=== PATIENT | female | born 1955 | race Caucasian/White ===

== ENCOUNTER → 2017-04-10 | Outpatient (REF) | payer BC ==
[~2017-04-10] MED LIST: /ADVA50050 IN; /PRAV20TA OR; AMLO10TA OR; AMLO25TA PO; ASPI81TA63 OR; ATIV0.5T OR; AVAP300T OR; AVEL1TAB3 PO; AVELIDE PO; Deltasone PO; GLUC1000 OR; GLUC500T OR; HYDR12.55 PO; HYDR25TA6 OR; LOSA100T36 PO; PREDNISONE PO; PROAAER10 INH; TIMO0.5S3 OU; TIOT18INH INH; VIBR100C OR; ZEBE5TAB OR; ZITHTAB PO; [UNRECOGNIZED DRUG - OTHER]
== END ==
LOC: M LAB REF 13:31
PROVIDERS: ATTEND Internal Medicine Medical Oncology
DX: C50.919 Malignant neoplasm of unspecified site of unspecified female breast (principal)

== ENCOUNTER → 2017-04-11 | Outpatient (CLI) | payer BC ==
[2017-04-11 07:09] LABS: ALBUMIN 3.7 GM/DL (3.2-5.2); ALBUMIN/GLOBULIN RATIO 1.12 (1.00-1.93); ALKALINE PHOSPHATASE 84 U/L (45-117); ALT/SGPT 26 U/L (12-78); ANION GAP 6 MEQ/L (8-16); AST/SGOT 14 U/L (7-37); BILIRUBIN,TOTAL 0.6 MG/DL (0.2-1.0); BLOOD UREA NITROGEN 13 MG/DL (7-18); CALCIUM LEVEL 9.1 MG/DL (8.8-10.2); CARBON DIOXIDE LEVEL 32 MEQ/L (21-32); CHLORIDE LEVEL 102 MEQ/L (98-107); CHOLESTEROL LEVEL 124 MG/DL (<200); CREATININE FOR GFR 0.76 MG/DL (0.55-1.02); GLOMERULAR FILTRATION RATE > 60.0 (>45); GLUCOSE, FASTING 154 MG/DL (80-110); POTASSIUM SERUM 4.3 MEQ/L (3.5-5.1); SODIUM LEVEL 140 MEQ/L (136-145); TRIGLYCERIDES LEVEL 115 MG/DL (<150)
== END ==
LOC: M LAB 06:04
PROVIDERS: ATTEND Internal Medicine
DX: E11.9 Type 2 diabetes mellitus without complications (principal); E78.5 Hyperlipidemia, unspecified; I10 Essential (primary) hypertension

== ENCOUNTER 2018-12-07 12:13 | Emergency (ER) | payer OTHER, BC ==
[~2018-12-07] VITALS: Ht 157.5 cm; Wt 95.5 kg
[~2018-12-07 12:13] MED LIST changes: -/ADVA50050 IN; -/PRAV20TA OR; +ADV250INH INH; +ADVA1AER2 IN; +AMLO10TA5 PO; +ASPI81TA26 PO; +BISO10TA7 PO; +INVO100T PO; -LOSA100T36 PO; +LOSA100T50 PO; +METF10004 PO; +PRAV1TAB39 OR; +PRAV20TA2 PO; -TIMO0.5S3 OU; +TIMO5SOL6 OU
[2018-12-07] MEDS ORDERED: GABA-1171 PO (12:29)
[2018-12-07] MEDS ORDERED: NORV2TAB PO (12:29)
[2018-12-07] MEDS ORDERED: APAP325T4 PO (14:29)
[2018-12-07] MEDS ORDERED: ACETAMINOPHEN TAB 650MG DOSE (2X325MG) PO ONE (14:30)
--- NOTE | 2018-12-07 14:32 | REP ---
PELVIS LEFT HIP: Three views. HISTORY: Injury in a fall. FINDINGS: AP view of the pelvis shows an intact bony pelvic ring. The femoral heads are smooth and rounded and hip joint spaces are preserved. Some vascular calcification is observed. The visualized bowel gas pattern is normal. AP and frog-leg views of the left femur show no additional abnormality. IMPRESSION: No fracture noted. Electronically Signed by Jozef Azul MD 12/07/2018 08:15 P
[2018-12-07 14:50] VITALS: BP 139/63
== END 2018-12-07 15:01 | disposition home or self-care (01) ==
LOC: M ED 12:13
DX: S70.02XA Contusion of left hip, initial encounter (principal); W18.39XA Other fall on same level, initial encounter; Y92.89 Other specified places as the place of occurrence of the external cause; Y99.0 Civilian activity done for income or pay; E11.9 Type 2 diabetes mellitus without complications; J44.9 Chronic obstructive pulmonary disease, unspecified; Z79.899 Other long term (current) drug therapy; Z79.84 Long term (current) use of oral hypoglycemic drugs; Z79.82 Long term (current) use of aspirin; Z88.8 Allergy status to other drugs, medicaments and biological substances; F17.210 Nicotine dependence, cigarettes, uncomplicated

== ENCOUNTER 2019-03-13 15:54 | Emergency (ER) | payer BC, OTHER ==
[~2019-03-13] VITALS: Ht 157.5 cm; Wt 98.0 kg
[2019-03-13 15:54] VITALS: BP 203/84
[~2019-03-13 15:54] MED LIST changes: +APAP325T4 PO; +BISO10TA10 PO; -BISO10TA7 PO; +GABA-1171 PO; +NORV2TAB PO
[2019-03-13] MEDS ORDERED: BETI0.5S (16:04)
[2019-03-13] MEDS ORDERED: LATANOPROST (16:04)
[2019-03-13] MEDS ORDERED: XALA0.007 OU (16:05)
[2019-03-13] MEDS ORDERED: NAPR-837 PO (16:35)
== END 2019-03-13 16:49 | disposition home or self-care (01) ==
LOC: M ED 15:54
DX: S46.211A Strain of muscle, fascia and tendon of other parts of biceps, right arm, initial encounter (principal); X58.XXXA Exposure to other specified factors, initial encounter; Y92.89 Other specified places as the place of occurrence of the external cause; I10 Essential (primary) hypertension; E11.9 Type 2 diabetes mellitus without complications; J44.9 Chronic obstructive pulmonary disease, unspecified; E78.5 Hyperlipidemia, unspecified; Z79.82 Long term (current) use of aspirin; Z88.8 Allergy status to other drugs, medicaments and biological substances; Z87.891 Personal history of nicotine dependence

== ENCOUNTER → 2019-03-28 | Outpatient (RCR) | payer BC ==
[~2019-03-28] MED LIST changes: +BETI0.5S; +LATANOPROST; +NAPR-837 PO; +XALA0.007 OU
== END ==
LOC: M PT 03-20 09:29
PROVIDERS: ATTEND Orthopaedic Surgery Hand Surgery
DX: S46.121D Laceration of muscle, fascia and tendon of long head of biceps, right arm, subsequent encounter (principal); X58.XXXD Exposure to other specified factors, subsequent encounter

== ENCOUNTER 2019-04-09 15:35 | Outpatient (RCR) | payer BC | END 2019-04-27 | LOC: M PT 15:35 | PROVIDERS: ATTEND Orthopaedic Surgery Hand Surgery | DX: Z47.89 Encounter for other orthopedic aftercare (principal) ==

== ENCOUNTER → 2019-06-19 | Outpatient (CLI) | payer BC ==
[~2019-06-19] MED LIST changes: -BISO10TA10 PO; +BISO10TA14 PO
--- NOTE | 2019-06-19 18:28 | REP ---
Left knee five views: There are no comparisons. There is mild tricompartment osteoarthritis. There is a transverse lucency at the base of the osteophyte at the superior margin of the patella, possibly a fracture. I suspect there is a small joint effusion. Mineralization is normal. There are no calcifications or foreign bodies. Impression: Likely fracture at the base of the an osteophyte at the superior margin of the patella. Small joint effusion. Electronically Signed by Chang Alcantara MD 06/19/2019 06:19 P
== END ==
LOC: M WUC 17:50
PROVIDERS: ATTEND Physician Assistant
DX: M25.562 Pain in left knee (principal)

== ENCOUNTER 2019-06-27 14:20 | Outpatient (RCR) | payer BC | END 2019-06-28 | LOC: M PT 14:20 | PROVIDERS: ATTEND Physician Assistant Surgical | DX: Z47.89 Encounter for other orthopedic aftercare (principal) ==

== ENCOUNTER 2019-07-23 14:18 | Outpatient (RCR) | payer BC | END 2019-07-27 | LOC: M PT 14:18 | PROVIDERS: ATTEND Physician Assistant Surgical | DX: M17.12 Unilateral primary osteoarthritis, left knee (principal) ==

== ENCOUNTER → 2020-05-05 | Outpatient (CLI) | payer SELFPAY ==
[~2020-05-05] MED LIST changes: -AMLO10TA5 PO; +AMLO1TAB25 PO
== END ==
LOC: M LABSMTC 14:49
PROVIDERS: ATTEND Pediatrics
DX: Z11.59 Encounter for screening for other viral diseases (principal)

== ENCOUNTER → 2021-07-30 | Outpatient (CLI) | payer MEDICARE ==
[~2021-07-30] MED LIST changes: +LOSA100T45 PO; -LOSA100T50 PO
== END ==
LOC: M WHC 12:23
PROVIDERS: ATTEND Specialist
DX: Z12.31 Encounter for screening mammogram for malignant neoplasm of breast (principal); Z90.11 Acquired absence of right breast and nipple; Z85.3 Personal history of malignant neoplasm of breast

== ENCOUNTER 2022-04-28 17:06 | Inpatient (IN) | payer MEDICARE ==
[~2022-04-28] VITALS: Ht 154.9 cm; Wt 93.8 kg
[~2022-04-28 17:06] MED LIST changes: +cefTRIAXone SOD 1 GM in D5W MINI-BAG PLUS 50 ML IV SCH
[2022-04-28] MEDS ORDERED: ACETAMINOPHEN 325 MG TAB PO ONE (17:50)
[2022-04-28 17:55] VITALS: O2SAT 94
[2022-04-28 18:00] LABS: BASO # 0.1 10^3/uL (0.0-0.2); BASO % 0.7 % (0.0-1.0); EOS # 0.1 10^3/uL (0.0-0.5); EOS % 0.9 % (0.0-3.0); HEMATOCRIT 37.8 % (36.0-47.0); HEMOGLOBIN 12.2 g/dl (12.0-15.5); LYMPH # 1.2 10^3/uL (1.5-5.0); LYMPH % 10.5 % (24.0-44.0); MEAN CORPUSCULAR HEMOGLOBIN 29.8 pg (27.0-33.0); MEAN CORPUSCULAR HGB CONC 32.3 g/dl (32.0-36.5); MEAN CORPUSCULAR VOLUME 92.4 fl (80.0-96.0); MONO # 1.1 10^3/uL (0.0-0.8); MONO % 9.3 % (2.0-8.0); NEUTROPHILS # 9.2 10^3/uL (1.5-8.5); NEUTROPHILS % 78.2 % (36.0-66.0); PLATELET COUNT, AUTOMATED 320 10^3/uL (150-450); RED BLOOD COUNT 4.09 10^6/uL (4.00-5.40); WHITE BLOOD COUNT 11.8 10^3/uL (4.0-10.0)
[2022-04-28 18:24] LABS: LIPASE 43 U/L (12-53)
[2022-04-28 18:25] LABS: BILIRUBIN,DIRECT 0.2 MG/DL (<0.4); CPK CREATINE PHOSPHOKINASE 78 U/L (34-145)
[2022-04-28] MEDS ORDERED: methylPREDNISolone 125MG 2ML VIAL IV ONE (20:00)
[2022-04-28] MEDS ORDERED: IPRATROPIUM 0.5MG/ALBUTEROL 2.5MG INH SOL UD 3ML (DUONEB) NEB ONE (20:00)
[2022-04-28 20:04] LABS: ALKALINE PHOSPHATASE 96 U/L (46-116); ALT/SGPT 22 U/L (7.0-40); AST/SGOT 15 U/L (<34); BILIRUBIN,TOTAL 0.6 MG/DL (0.3-1.2); BLOOD UREA NITROGEN 15 MG/DL (9-23); CARBON DIOXIDE LEVEL 28 MMOL/L (20-31); CHLORIDE LEVEL 95 MMOL/L (98-107); CREATININE FOR GFR 0.61 MG/DL (0.55-1.30); GLOMERULAR FILTRATION RATE > 60.0 (>45); GLUCOSE, FASTING 168 MG/DL (74-106); POTASSIUM SERUM 4.1 MMOL/L (3.5-5.1); SODIUM LEVEL 134 MMOL/L (136-145); TOTAL PROTEIN 6.4 G/DL (5.7-8.2)
[2022-04-28 20:23] LABS: CALCIUM LEVEL 8.5 MG/DL (8.3-10.6); CK-MB VALUE MASS < 1.0 NG/ML (<3.6); MB/CK RELATIVE INDEX 1.28 (< OR =4)
[2022-04-28] MEDS ORDERED: LevoFLOXacin IV 750 MG in IV 1 EA IV ONE (20:50)
[2022-04-28] MEDS: THIAMINE 100 MG TAB PO SCH (21:00)
[2022-04-28] MEDS ORDERED: GLUCAGON INJ 1MG VIAL SC PRN (22:25)
[2022-04-28] MEDS ORDERED: DEXTROSE 50% 50 ML SYRINGE IV PRN (22:25)
[2022-04-28] MEDS ORDERED: GLUCOSE 4GM CHEW TABLET PO PRN (22:25)
[2022-04-28] MEDS ORDERED: ACETAMINOPHEN TAB 650MG DOSE (2X325MG) PO PRN (22:25)
[2022-04-28] MEDS: cefTRIAXone SOD 1 GM in D5W MINI-BAG PLUS 50 ML IV SCH (23:56)
[2022-04-28] MEDS: DOXYCYCLINE HYCLATE 100 MG in D5W MINI-BAG PLUS 100 ML IV SCH (23:57)
[2022-04-29] MEDS ORDERED: LORazepam 2 MG TAB PO PRN
[2022-04-29 01:06] LABS: CK-MB VALUE MASS < 1.0 NG/ML (<3.6)
[2022-04-29 01:07] LABS: CPK CREATINE PHOSPHOKINASE 72 U/L (34-145); MB/CK RELATIVE INDEX 1.38 (< OR =4)
[2022-04-29] MEDS ORDERED: ALBU2.5V10 INH (01:16)
[2022-04-29] MEDS ORDERED: COSO1SOL3 OD (01:16)
[2022-04-29] MEDS ORDERED: LEVOTAB10 PO (01:16)
[2022-04-29] MEDS ORDERED: ALBU8.5H INH (01:16)
[2022-04-29] MEDS ORDERED: ACAR50TA3 PO (01:16)
[2022-04-29] MEDS ORDERED: VITMTA PO (01:16)
[2022-04-29] MEDS ORDERED: TRAV04OPD OS (01:16)
[2022-04-29] MEDS ORDERED: HOME MED LIST COMPLETE! XX SCH (01:20)
[2022-04-29] MEDS ORDERED: ISOVUE-370 76% 100ML VIAL As Ordered ONE (06:39)
[2022-04-29 06:54] LABS: HEMATOCRIT 37.8 % (36.0-47.0); HEMOGLOBIN 12.1 g/dl (12.0-15.5); MEAN CORPUSCULAR HEMOGLOBIN 29.4 pg (27.0-33.0); MEAN CORPUSCULAR VOLUME 91.7 fl (80.0-96.0); PLATELET COUNT, AUTOMATED 332 10^3/uL (150-450); RED BLOOD COUNT 4.12 10^6/uL (4.00-5.40); WHITE BLOOD COUNT 7.9 10^3/uL (4.0-10.0)
[2022-04-29 07:21] LABS: MAGNESIUM LEVEL 1.3 MG/DL (1.8-2.4)
[2022-04-29 07:22] LABS: ALBUMIN 2.9 G/DL (3.2-5.2); ALKALINE PHOSPHATASE 98 U/L (46-116); ALT/SGPT 21 U/L (7.0-40); AST/SGOT 14 U/L (<34); BILIRUBIN,TOTAL 0.4 MG/DL (0.3-1.2); BLOOD UREA NITROGEN 18 MG/DL (9-23); CALCIUM LEVEL 8.8 MG/DL (8.3-10.6); CARBON DIOXIDE LEVEL 27 MMOL/L (20-31); CHLORIDE LEVEL 93 MMOL/L (98-107); CREATININE FOR GFR 0.57 MG/DL (0.55-1.30); GLOMERULAR FILTRATION RATE > 60.0 (>45); GLUCOSE, FASTING 348 MG/DL (74-106); POTASSIUM SERUM 4.4 MMOL/L (3.5-5.1); SODIUM LEVEL 133 MMOL/L (136-145); TOTAL PROTEIN 6.5 G/DL (5.7-8.2)
[2022-04-29] MEDS: INSULIN LISPRO (NovoLOG) PER UNIT SC SCH ×3 (08:12→17:48)
[2022-04-29] MEDS: methylPREDNISolone 40MG 1ML VIAL IV SCH ×2 (08:12→21:52)
[2022-04-29] MEDS: ENOXAPARIN 40MG/0.4ML SYRINGE (J1650 PER 10MG) SC SCH (08:13)
[2022-04-29] MEDS: THIAMINE 100 MG TAB PO SCH ×2 (08:14→21:52)
[2022-04-29] MEDS: GABAPENTIN 100 MG CAP PO SCH ×2 (08:14→21:52)
[2022-04-29] MEDS: LOSARTAN 50MG TABLET PO SCH (08:14)
[2022-04-29] MEDS: MULTIVITAMINS/MINERALS THERAP 1 TAB PO SCH (08:14)
[2022-04-29] MEDS: FOLIC ACID 1MG TAB PO SCH (08:14)
[2022-04-29] MEDS: ASPIRIN 81MG ENTERIC TABLET PO SCH (08:14)
[2022-04-29] MEDS: bisoproloL fumarate 10 MG TAB PO SCH (08:18)
[2022-04-29] MEDS: IPRATROPIUM 0.5MG/ALBUTEROL 2.5MG INH SOL UD 3ML (DUONEB) NEB SCH ×3 (08:45→19:47)
[2022-04-29] MEDS: TIOTROPIUM INHALER/CAPSULE (SPIRIVA) INH SCH (08:47)
[2022-04-29] MEDS ORDERED: COSOPT OCUMETER PLUS 10ML (DORZOLAMIDE/TIMOLOL) OD SCH (09:00)
[2022-04-29] MEDS: DOXYCYCLINE HYCLATE 100 MG in D5W MINI-BAG PLUS 100 ML IV SCH (11:25)
[2022-04-29 14:15] VITALS: BP 160/87
[2022-04-29] MEDS: MAGNESIUM OXIDE 400MG TAB (MAG-OX) PO SCH ×2 (14:44→21:51)
[2022-04-29 15:28] VITALS: BP 161/87
[2022-04-29] MEDS: guaiFENesin SYRUP 200MG 10ML UDC PO PRN ×2 (15:45→21:54)
[2022-04-29] MEDS ORDERED: INSULIN LISPRO (NovoLOG) PER UNIT SC SCH (21:00)
[2022-04-29] MEDS ORDERED: PRAVASTATIN 20 MG TAB PO SCH (21:00)
[2022-04-29] MEDS ORDERED: LATANOPROST 0.005% OPHTH SOLN 2.5 ML OS SCH (21:00)
[2022-04-29 21:03] VITALS: BP 161/87
[2022-04-29] MEDS: DOXYCYCLINE HYCLATE 100MG TABLET PO SCH (21:52)
[2022-04-29 22:00] VITALS: BP 161/87
[2022-04-29] MEDS: cefTRIAXone SOD 1 GM in D5W MINI-BAG PLUS 50 ML IV SCH (23:33)
[2022-04-29] MEDS: COSOPT OCUMETER PLUS 10ML (DORZOLAMIDE/TIMOLOL) OS SCH (23:33)
[2022-04-30] MEDS: IPRATROPIUM 0.5MG/ALBUTEROL 2.5MG INH SOL UD 3ML (DUONEB) NEB SCH ×3 (01:11→13:14)
[2022-04-30 05:00] VITALS: BP 151/83
[2022-04-30 06:34] VITALS: BP 151/83
[2022-04-30] MEDS: TIOTROPIUM INHALER/CAPSULE (SPIRIVA) INH SCH (07:13)
[2022-04-30] MEDS: ENOXAPARIN 40MG/0.4ML SYRINGE (J1650 PER 10MG) SC SCH (08:01)
[2022-04-30] MEDS: methylPREDNISolone 40MG 1ML VIAL IV SCH (08:01)
[2022-04-30] MEDS: INSULIN LISPRO (NovoLOG) PER UNIT SC SCH ×2 (08:02→11:44)
[2022-04-30 08:04] VITALS: BP 152/89
[2022-04-30] MEDS: bisoproloL fumarate 10 MG TAB PO SCH (08:04)
[2022-04-30] MEDS: GABAPENTIN 100 MG CAP PO SCH (08:04)
[2022-04-30] MEDS: MAGNESIUM OXIDE 400MG TAB (MAG-OX) PO SCH (08:05)
[2022-04-30] MEDS: ASPIRIN 81MG ENTERIC TABLET PO SCH (08:05)
[2022-04-30] MEDS: DOXYCYCLINE HYCLATE 100MG TABLET PO SCH (08:05)
[2022-04-30] MEDS: FOLIC ACID 1MG TAB PO SCH (08:05)
[2022-04-30] MEDS: COSOPT OCUMETER PLUS 10ML (DORZOLAMIDE/TIMOLOL) OS SCH (08:06)
[2022-04-30] MEDS: THIAMINE 100 MG TAB PO SCH (08:06)
[2022-04-30] MEDS: LOSARTAN 50MG TABLET PO SCH (08:06)
[2022-04-30] MEDS: MULTIVITAMINS/MINERALS THERAP 1 TAB PO SCH (08:06)
[2022-04-30] MEDS ORDERED: LEVA1.25 INH (08:42)
[2022-04-30] MEDS ORDERED: SYMB16INH INH (08:42)
[2022-04-30] MEDS ORDERED: LEVAINH INH (08:42)
[2022-04-30] MEDS ORDERED: hydroCHLOROthiazide 12.5 MG CAPSULE PO SCH (09:00)
[2022-04-30] MEDS ORDERED: DOXY-444 PO (10:21)
[2022-04-30] MEDS ORDERED: CEFD300C41 PO (10:21)
[2022-04-30] MEDS ORDERED: PRED10TA2 PO (10:24)
== END 2022-04-30 16:20 | disposition home or self-care (01) | DRG 190 ==
LOC: M ED 17:06 → EDBD 17:06 → M ED INP 22:22 → ENRESERV 04-29 12:10 → M MSPAV 04-29 14:02
PROVIDERS: ADMIT Family Medicine; ATTEND Internal Medicine
DX: J44.1 Chronic obstructive pulmonary disease with (acute) exacerbation (principal); J18.9 Pneumonia, unspecified organism; J98.11 Atelectasis; J44.0 Chronic obstructive pulmonary disease with (acute) lower respiratory infection; I10 Essential (primary) hypertension; E11.9 Type 2 diabetes mellitus without complications; E78.5 Hyperlipidemia, unspecified; K76.0 Fatty (change of) liver, not elsewhere classified; Z88.8 Allergy status to other drugs, medicaments and biological substances; Z79.899 Other long term (current) drug therapy; Z79.82 Long term (current) use of aspirin; F10.10 Alcohol abuse, uncomplicated; E83.42 Hypomagnesemia

== ENCOUNTER → 2022-06-13 | Outpatient (CLI) | payer OTHER ==
[~2022-06-13] MED LIST changes: +ACAR50TA3 PO; +ALBU2.5V10 INH; +ALBU8.5H INH; +CEFD300C41 PO; +COSO1SOL3 OD; +DOXY-444 PO; +LEVA1.25 INH; +LEVAINH INH; +LEVOTAB10 PO; +PRED10TA2 PO; +SYMB16INH INH; +TRAV04OPD OS; +VITMTA PO; -cefTRIAXone SOD 1 GM in D5W MINI-BAG PLUS 50 ML IV SCH
== END ==
LOC: M PLAIMG 11:10
PROVIDERS: ATTEND Physician Assistant Medical
DX: J18.8 Other pneumonia, unspecified organism (principal)

== ENCOUNTER → 2022-08-01 | Outpatient (CLI) | payer OTHER | LOC: M WHC 09:12 | PROVIDERS: ATTEND Internal Medicine | DX: Z12.31 Encounter for screening mammogram for malignant neoplasm of breast (principal); Z85.3 Personal history of malignant neoplasm of breast ==

== ENCOUNTER → 2022-08-11 | Outpatient (CLI) | payer OTHER | LOC: M CARPUL 12:51 | PROVIDERS: ATTEND Internal Medicine Pulmonary Disease | DX: R05.9 Cough, unspecified (principal) ==

== ENCOUNTER → 2022-08-31 | Outpatient (REF) | payer OTHER ==
[~2022-08-31] MED LIST changes: -BETI0.5S; -COSO1SOL3 OD; +DORZ10DR10 OD; +TIMO5DRO4
== END ==
LOC: M LAB REF 16:11
PROVIDERS: ATTEND Internal Medicine
DX: G60.9 Hereditary and idiopathic neuropathy, unspecified (principal)

== ENCOUNTER → 2022-09-07 | Outpatient (CLI) | payer OTHER | LOC: M CARPUL 08:52 | PROVIDERS: ATTEND Internal Medicine Pulmonary Disease | DX: R06.02 Shortness of breath (principal) ==

== ENCOUNTER → 2022-10-03 | Outpatient (CLI) | payer OTHER ==
[~2022-10-03] MED LIST changes: -LOSA100T45 PO; +LOSA100T46 PO
== END ==
LOC: M PLAIMG 11:14
PROVIDERS: ATTEND Internal Medicine Pulmonary Disease
DX: R91.8 Other nonspecific abnormal finding of lung field (principal)

== ENCOUNTER → 2023-04-27 | Outpatient (CLI) | payer OTHER, MEDICARE ==
[~2023-04-27] MED LIST changes: +ALEN70TA82 PO; +CEFD1CAP9 PO; -CEFD300C41 PO; +MONT10TA97
== END ==
LOC: M SLEEP 20:00
PROVIDERS: ATTEND Internal Medicine Pulmonary Disease
DX: R06.83 Snoring (principal)

== ENCOUNTER → 2023-08-03 | Outpatient (CLI) | payer OTHER | LOC: M WHC 09:52 | PROVIDERS: ATTEND Specialist | DX: Z12.31 Encounter for screening mammogram for malignant neoplasm of breast (principal) ==

== ENCOUNTER 2023-10-07 23:52 | Emergency (ER) | payer OTHER ==
[~2023-10-07] VITALS: Ht 154.9 cm; Wt 92.3 kg
[~2023-10-07 23:52] MED LIST changes: +DOXY-440 PO; -DOXY-444 PO
[2023-10-08 00:42] LABS: VENOUS BASE EXCESS -0.8 (-2.0-2.0); VENOUS HCO3 23.5 MMOL/L (23.0-27.0); VENOUS O2 SATURATION 93.1 % (60.0-80.0); VENOUS PARTIAL PRESSURE CO2 37.7 mmHg (38.0-50.0); VENOUS PARTIAL PRESSURE O2 69.8 mmHg (30.0-50.0); VENOUS PH 7.412 UNITS (7.330-7.430); VENOUS STANDARD HCO3 23.7 MMOL/L; VENOUS TOTAL CO2 24.6 MMOL/L (24.0-28.0)
[2023-10-08 00:50] LABS: BASO # 0.1 10^3/uL (0.0-0.2); BASO % 0.5 % (0.0-1.0); EOS # 0.1 10^3/uL (0.0-0.5); EOS % 0.7 % (0.0-3.0); HEMATOCRIT 37.7 % (36.0-47.0); HEMOGLOBIN 12.6 g/dl (12.0-15.5); LYMPH # 0.8 10^3/uL (1.5-5.0); LYMPH % 5.8 % (24.0-44.0); MEAN CORPUSCULAR HEMOGLOBIN 29.9 pg (27.0-33.0); MEAN CORPUSCULAR HGB CONC 33.4 g/dl (32.0-36.5); MEAN CORPUSCULAR VOLUME 89.3 fl (80.0-96.0); MONO % 7.2 % (2.0-8.0); NEUTROPHILS # 12.2 10^3/uL (1.5-8.5); NEUTROPHILS % 85.4 % (36.0-66.0); PLATELET COUNT, AUTOMATED 309 10^3/uL (150-450); RED BLOOD COUNT 4.22 10^6/uL (4.00-5.40); WHITE BLOOD COUNT 14.3 10^3/uL (4.0-10.0)
[2023-10-08] MEDS ORDERED: SEMA0.257 SQ (01:11)
[2023-10-08] MEDS ORDERED: PROA1AER2 INH (01:11)
[2023-10-08] MEDS ORDERED: ALBU2.5V10 NEB (01:11)
[2023-10-08] MEDS ORDERED: JARD1TAB PO (01:11)
[2023-10-08] MEDS ORDERED: TREL1AER PO (01:11)
[2023-10-08 01:12] LABS: ALBUMIN 3.6 G/DL (3.2-5.2); ALKALINE PHOSPHATASE 59 U/L (46-116); ALT/SGPT 23 U/L (7.0-40); AST/SGOT 18 U/L (<34); BILIRUBIN,DIRECT 0.3 MG/DL (<0.4); BILIRUBIN,TOTAL 0.7 MG/DL (0.3-1.2); BLOOD UREA NITROGEN 16 MG/DL (9-23); CALCIUM LEVEL 8.7 MG/DL (8.3-10.6); CARBON DIOXIDE LEVEL 26 MMOL/L (20-31); CHLORIDE LEVEL 99 MMOL/L (98-107); CK-MB VALUE MASS < 1.0 NG/ML (<3.6); CPK CREATINE PHOSPHOKINASE 111 U/L (34-145); CREATININE FOR GFR 0.71 MG/DL (0.55-1.30); GLOMERULAR FILTRATION RATE > 60.0 (>45); GLUCOSE, FASTING 186 MG/DL (74-106); POTASSIUM SERUM 4.1 MMOL/L (3.5-5.1); SODIUM LEVEL 134 MMOL/L (136-145); TOTAL PROTEIN 6.6 G/DL (5.7-8.2)
[2023-10-08] MEDS: methylPREDNISolone 125MG 2ML VIAL IV ONE (02:51)
[2023-10-08] MEDS: ACETAMINOPHEN TAB 650MG DOSE (2X325MG) PO ONE (02:51)
[2023-10-08 03:06] LABS: CK-MB VALUE MASS < 1.0 NG/ML (<3.6)
[2023-10-08 03:14] LABS: CPK CREATINE PHOSPHOKINASE 112 U/L (34-145); MB/CK RELATIVE INDEX 0.89 (< OR =4)
[2023-10-08 03:37] VITALS: TEMP 98.1
[2023-10-08] MEDS ORDERED: PRED20TA PO (04:06)
[2023-10-08] MEDS ORDERED: AZIT-12 PO (04:06)
[2023-10-08] MEDS: AZITHROMYCIN 250MG TABLET PO ONE (04:14)
[2023-10-08 05:19] VITALS: BP 172/88; O2SAT 94
== END 2023-10-08 05:20 | disposition home or self-care (01) ==
LOC: M ED 23:52
DX: J44.1 Chronic obstructive pulmonary disease with (acute) exacerbation (principal); R00.0 Tachycardia, unspecified; I45.10 Unspecified right bundle-branch block; E11.9 Type 2 diabetes mellitus without complications; I10 Essential (primary) hypertension; F10.10 Alcohol abuse, uncomplicated; Z88.8 Allergy status to other drugs, medicaments and biological substances; Z79.52 Long term (current) use of systemic steroids; Z79.82 Long term (current) use of aspirin; Z79.4 Long term (current) use of insulin; Z79.899 Other long term (current) drug therapy
CPT/HCPCS: 71045; 80048; 80076; 82550; 82553; 82803; 83605; 84484; 85025; 87040; 87486; 87581; 87633; 87798; 93005; 93041; 94760; 96374; 99285; J2919

== ENCOUNTER 2023-10-22 11:34 | Inpatient (IN) | payer OTHER ==
[~2023-10-22] VITALS: Ht 154.9 cm; Wt 91.5 kg
[~2023-10-22 11:34] MED LIST changes: +ALBU2.5V10 NEB; +AZIT-12 PO; +JARD1TAB PO; -MONT10TA97; +MONT10TA97 PO; +PRED20TA PO; +PROA1AER2 INH; +SEMA0.257 SQ; +TREL1AER PO
[2023-10-22] MEDS: methylPREDNISolone 125MG 2ML VIAL IV ONE (11:50)
[2023-10-22] MEDS: IPRATROPIUM 0.5MG/ALBUTEROL 2.5MG INH SOL UD 3ML (DUONEB) NEB ONE (12:05)
[2023-10-22] MEDS: ALBUTEROL SULFATE 2.5MG/0.5ML INH NEB SOLN INH ONE (12:05)
[2023-10-22 12:21] LABS: ABG BASE EXCESS 1.7 (-2.0-2.0); ABG HCO3 27.3 MMOL/L (22.0-26.0); ABG O2 SATURATION 93.8 % (95.0-99.0); ABG PARTIAL PRESSURE CO2 46.7 mmHg (35.0-45.0); ABG PARTIAL PRESSURE O2 74.5 mmHg (75.0-100.0); ABG STANDARD HCO3 25.9 MMOL/L. (22.0-26.0); ABG TOTAL CO2 28.7 MMOL/L (23.0-31.0); ABG pH (ARTERIAL) 7.384 UNITS (7.350-7.450)
[2023-10-22 12:29] LABS: BASO # 0.1 10^3/uL (0.0-0.2); BASO % 0.6 % (0.0-1.0); EOS # 0.2 10^3/uL (0.0-0.5); EOS % 0.7 % (0.0-3.0); HEMATOCRIT 41.7 % (36.0-47.0); HEMOGLOBIN 13.6 g/dl (12.0-15.5); LYMPH # 1.3 10^3/uL (1.5-5.0); LYMPH % 5.9 % (24.0-44.0); MEAN CORPUSCULAR HGB CONC 32.6 g/dl (32.0-36.5); MEAN CORPUSCULAR VOLUME 92.1 fl (80.0-96.0); MONO % 4.6 % (2.0-8.0); NEUTROPHILS # 18.7 10^3/uL (1.5-8.5); NEUTROPHILS % 87.4 % (36.0-66.0); PLATELET COUNT, AUTOMATED 318 10^3/uL (150-450); RED BLOOD COUNT 4.53 10^6/uL (4.00-5.40); WHITE BLOOD COUNT 21.4 10^3/uL (4.0-10.0)
[2023-10-22] MEDS ORDERED: ALEN70TA82 PO (12:46)
[2023-10-22] MEDS ORDERED: CYAN-1 PO (12:50)
[2023-10-22] MEDS ORDERED: HOME MED LIST COMPLETE! XX SCH (12:50)
[2023-10-22] MEDS ORDERED: BRIM0.2S13 OP (12:52)
[2023-10-22 12:57] LABS: ALBUMIN 3.9 G/DL (3.2-5.2); ALKALINE PHOSPHATASE 67 U/L (46-116); ALT/SGPT 24 U/L (7.0-40); AST/SGOT 16 U/L (<34); BILIRUBIN,DIRECT 0.2 MG/DL (<0.4); BILIRUBIN,TOTAL 0.6 MG/DL (0.3-1.2); BLOOD UREA NITROGEN 15 MG/DL (9-23); CALCIUM LEVEL 9.5 MG/DL (8.3-10.6); CARBON DIOXIDE LEVEL 30 MMOL/L (20-31); CHLORIDE LEVEL 103 MMOL/L (98-107); CPK CREATINE PHOSPHOKINASE 49 U/L (34-145); CREATININE FOR GFR 0.75 MG/DL (0.55-1.30); GLOMERULAR FILTRATION RATE > 60.0 (>45); GLUCOSE, FASTING 159 MG/DL (74-106); MB/CK RELATIVE INDEX 2.04 (< OR =4); POTASSIUM SERUM 4.6 MMOL/L (3.5-5.1); SODIUM LEVEL 139 MMOL/L (136-145); TOTAL PROTEIN 7.1 G/DL (5.7-8.2)
[2023-10-22 12:59] LABS: THYROID STIMULATING HORMONE 1.975 uIU/ML (0.55-4.78); THYROXINE (T4) 9.4 UG/DL (4.5-10.9)
[2023-10-22] MEDS: AZITHROMYCIN INJ 500 MG, VIAL MATE ADAPTER 1 EACH in D5W 250 ML IV ONE (13:25)
[2023-10-22 13:42] LABS: CK-MB VALUE MASS 1.2 NG/ML (<3.6); MB/CK RELATIVE INDEX 1.69 (< OR =4)
[2023-10-22] MEDS: cefTRIAXone SOD 1 GM in D5W MINI-BAG PLUS 50 ML IV ONE (13:52)
[2023-10-22] MEDS ORDERED: GLUCAGON INJ 1MG VIAL SC PRN (16:35)
[2023-10-22] MEDS ORDERED: DEXTROSE 50% 50ML SYRINGE IV PRN (16:35)
[2023-10-22] MEDS ORDERED: SITagliptin 50 MG TAB (JANUVIA) PO ONE (16:35)
[2023-10-22] MEDS ORDERED: ACETAMINOPHEN TAB 650MG DOSE (2X325MG) PO PRN (16:35)
[2023-10-22] MEDS ORDERED: GLUCOSE 4 GM CHEW PO PRN (16:35)
[2023-10-22 17:24] LABS: PROCALCITONIN <0.04 ng/ml
[2023-10-22 18:01] VITALS: BP 174/92; TEMP 98.1; O2SAT 91
[2023-10-22] MEDS: INSULIN LISPRO (NovoLOG) PER UNIT SC SCH ×2 (18:40→20:37)
[2023-10-22] MEDS: IPRATROPIUM 0.5MG/ALBUTEROL 2.5MG INH SOL UD 3ML (DUONEB) NEB SCH (19:08)
[2023-10-22] MEDS: BUDESONIDE 0.5 MG/2 ML INHALATION SUSPENSION NEB SCH (19:08)
[2023-10-22] MEDS: COSOPT OCUMETER PLUS 10ML (DORZOLAMIDE/TIMOLOL) OD SCH (20:35)
[2023-10-22] MEDS: LATANOPROST 0.005% OPHTH SOLN 2.5 ML OS SCH (20:36)
[2023-10-22] MEDS: methylPREDNISolone 40MG 1ML VIAL IV SCH (20:37)
[2023-10-22] MEDS: PRAVASTATIN 20 MG TAB PO SCH (20:38)
[2023-10-22] MEDS: MONTELUKAST 10 MG TAB PO SCH (20:38)
[2023-10-22] MEDS: HEPARIN SOD (PORCINE) 5000UNITS/ML 1ML VIAL/SYRINGE SC SCH (20:38)
[2023-10-22] MEDS: GABAPENTIN 100 MG CAP PO SCH (20:39)
[2023-10-22] MEDS: LEVEMIR (INSULIN DETEMIR) 1 UNITS/0.01ML SC SCH (20:40)
[2023-10-22 22:00] VITALS: BP 169/91; TEMP 97.9; O2SAT 91
[2023-10-23] VITALS (11 sets, daily range): BP systolic 154–160; BP diastolic 85–88; TEMP 97.7–98.1; O2SAT 91–99
[2023-10-23 05:49] LABS: HEMATOCRIT 36.6 % (36.0-47.0); HEMOGLOBIN 12.4 g/dl (12.0-15.5); MEAN CORPUSCULAR HEMOGLOBIN 30.4 pg (27.0-33.0); MEAN CORPUSCULAR HGB CONC 33.9 g/dl (32.0-36.5); MEAN CORPUSCULAR VOLUME 89.7 fl (80.0-96.0); PLATELET COUNT, AUTOMATED 269 10^3/uL (150-450); RED BLOOD COUNT 4.08 10^6/uL (4.00-5.40); WHITE BLOOD COUNT 12.2 10^3/uL (4.0-10.0)
[2023-10-23 06:17] LABS: ALBUMIN 3.1 G/DL (3.2-5.2); ALKALINE PHOSPHATASE 56 U/L (46-116); ALT/SGPT 18 U/L (7.0-40); AST/SGOT 9 U/L (<34); BILIRUBIN,TOTAL 0.5 MG/DL (0.3-1.2); BLOOD UREA NITROGEN 18 MG/DL (9-23); CARBON DIOXIDE LEVEL 29 MMOL/L (20-31); CHLORIDE LEVEL 103 MMOL/L (98-107); CREATININE FOR GFR 0.62 MG/DL (0.55-1.30); GLOMERULAR FILTRATION RATE > 60.0 (>45); GLUCOSE, FASTING 212 MG/DL (74-106); POTASSIUM SERUM 4.1 MMOL/L (3.5-5.1); SODIUM LEVEL 139 MMOL/L (136-145); TOTAL PROTEIN 6.1 G/DL (5.7-8.2)
[2023-10-23] MEDS: CYANOCOBALAMIN 500 MCG TAB PO SCH (08:23)
[2023-10-23] MEDS: AZITHROMYCIN 250MG TABLET PO SCH (08:23)
[2023-10-23] MEDS: ASPIRIN 81MG ENTERIC TABLET PO SCH (08:26)
[2023-10-23] MEDS: DAPAGLIFLOZIN PROPANEDIOL 10MG TABLET (FARXIGA) PO SCH (08:26)
[2023-10-23] MEDS: bisoproloL fumarate 10 MG TAB PO SCH (08:27)
[2023-10-23] MEDS: LOSARTAN 50MG TABLET PO SCH (08:27)
[2023-10-23] MEDS: cefTRIAXone SOD 1 GM in D5W MINI-BAG PLUS 50 ML IV SCH (14:06)
[2023-10-23] MEDS: LEVEMIR (INSULIN DETEMIR) 1 UNITS/0.01ML SC SCH (20:44)
[2023-10-24 05:59] LABS: BASO % 0.1 % (0.0-1.0); HEMATOCRIT 34.8 % (36.0-47.0); HEMOGLOBIN 11.5 g/dl (12.0-15.5); LYMPH # 0.7 10^3/uL (1.5-5.0); LYMPH % 4.3 % (24.0-44.0); MEAN CORPUSCULAR HEMOGLOBIN 29.9 pg (27.0-33.0); MEAN CORPUSCULAR VOLUME 90.6 fl (80.0-96.0); MONO # 0.2 10^3/uL (0.0-0.8); MONO % 1.5 % (2.0-8.0); NEUTROPHILS # 14.1 10^3/uL (1.5-8.5); NEUTROPHILS % 93.3 % (36.0-66.0); PLATELET COUNT, AUTOMATED 285 10^3/uL (150-450); RED BLOOD COUNT 3.84 10^6/uL (4.00-5.40); WHITE BLOOD COUNT 15.1 10^3/uL (4.0-10.0)
[2023-10-24 06:00] VITALS: BP 156/84; TEMP 97.7; O2SAT 97
[2023-10-24 06:24] LABS: BLOOD UREA NITROGEN 28 MG/DL (9-23); CARBON DIOXIDE LEVEL 28 MMOL/L (20-31); CHLORIDE LEVEL 103 MMOL/L (98-107); CREATININE FOR GFR 0.63 MG/DL (0.55-1.30); GLOMERULAR FILTRATION RATE > 60.0 (>45); GLUCOSE, FASTING 260 MG/DL (74-106); POTASSIUM SERUM 4.1 MMOL/L (3.5-5.1); SODIUM LEVEL 138 MMOL/L (136-145)
[2023-10-24 08:23] VITALS: BP 158/85
[2023-10-24] MEDS ORDERED: IPRA0.00 NEB (10:10)
[2023-10-24] MEDS ORDERED: AZIT-12 PO (10:10)
[2023-10-24] MEDS ORDERED: PRED10TA2 PO (10:10)
[2023-10-24] MEDS ORDERED: CEFD1CAP9 PO (10:10)
== END 2023-10-24 12:58 | disposition home or self-care (01) | DRG 193 ==
LOC: M ED 11:34 → M ED INP 16:31 → M MSPAV 17:47
PROVIDERS: ADMIT Hospitalist; ATTEND Family Medicine
DX: J18.9 Pneumonia, unspecified organism (principal); J96.21 Acute and chronic respiratory failure with hypoxia; J44.0 Chronic obstructive pulmonary disease with (acute) lower respiratory infection; E11.65 Type 2 diabetes mellitus with hyperglycemia; E78.5 Hyperlipidemia, unspecified; I10 Essential (primary) hypertension; Z87.891 Personal history of nicotine dependence; E53.8 Deficiency of other specified B group vitamins; Z79.899 Other long term (current) drug therapy; Z88.8 Allergy status to other drugs, medicaments and biological substances

== ENCOUNTER → 2023-11-22 | Outpatient (CLI) | payer OTHER ==
[~2023-11-22] MED LIST changes: +BRIM0.2S13 OP; +CYAN-1 PO; +IPRA0.00 NEB
== END ==
LOC: M RAD 09:27
PROVIDERS: ATTEND Internal Medicine
DX: R18.8 Other ascites (principal); R14.0 Abdominal distension (gaseous)

== ENCOUNTER → 2023-11-27 | Outpatient (CLI) | payer OTHER | LOC: M RAD 12:27 | PROVIDERS: ATTEND Internal Medicine Pulmonary Disease | DX: Z87.891 Personal history of nicotine dependence (principal) ==

== ENCOUNTER 2023-12-20 06:15 | Day surgery (SDC) | payer OTHER ==
[~2023-12-20] VITALS: Ht 152.4 cm; Wt 88.5 kg
[~2023-12-20 06:15] MED LIST changes: +AMLO2.5T3 PO; +PHENYLEPHRINE 10% OPHTH SOL 5ML OS PRN
[2023-12-20] MEDS: LIDOCAINE 1% SDV 5ML VIAL As Ordered ONE (06:42)
[2023-12-20] MEDS: CEFUROXIME 1MG/0.1ML INTRACAMERAL INJ As Ordered ONE (06:42)
[2023-12-20] MEDS: mitoMYcin 0.2 MG/VIAL KIT FOR OPHTHALMIC USE As Ordered ONE (07:04)
[2023-12-20] MEDS ORDERED: MIDAZOLAM INJ 2MG/2ML VIAL As Ordered ONE (07:05)
[2023-12-20] MEDS ORDERED: fentaNYL 100 MCG/2 ML INJECTION As Ordered ONE (07:06)
[2023-12-20] MEDS: ATROPINE SULFATE 1% OPHTH SOLN 2ML BTL OS SCH (07:10)
[2023-12-20] MEDS: PHENYLEPHRINE 2.5% OPHTH SOL 2ML OS SCH (07:10)
[2023-12-20] MEDS: LIDOCAINE 3.5 % 1ML OPHTH TOPICAL GEL OU ONE (07:10)
[2023-12-20] MEDS: TROPICAMIDE 1% OPHTH SOLN 15ML OS SCH (07:10)
[2023-12-20] MEDS: OFLOXACIN 0.3 % (OCUFLOX) OPTH SOL 5ML OS ONE (07:10)
[2023-12-20] MEDS: INSULIN LISPRO (NovoLOG) PER UNIT SC PRN (07:36)
[2023-12-20] MEDS ORDERED: LABETALOL 100MG/20ML VIAL As Ordered ONE (08:22)
[2023-12-20] MEDS: TOBRADEX OPHTH OINT 3.5 GM As Ordered ONE (08:25)
[2023-12-20] MEDS: LIDOCAINE 2% W/EPINEPHRINE 20ML VIAL **PRES FREE As Ordered ONE (08:25)
[2023-12-20] MEDS: BALANCED SALT SOLN OPHTH 15 ML BTL As Ordered ONE (08:29)
[2023-12-20] MEDS: CARBACHOL 0.01% OPHTH SOLN 1.5ML VIAL As Ordered ONE (08:35)
[2023-12-20 08:55] VITALS: BP 125/78; TEMP 97.7; O2SAT 94
== END 2023-12-20 09:12 | disposition home or self-care (01) ==
LOC: M SDC 06:15
PROVIDERS: ATTEND Ophthalmology
DX: H40.9 Unspecified glaucoma (principal); E11.9 Type 2 diabetes mellitus without complications; I10 Essential (primary) hypertension; J44.9 Chronic obstructive pulmonary disease, unspecified; G47.30 Sleep apnea, unspecified; Z79.899 Other long term (current) drug therapy; Z79.82 Long term (current) use of aspirin; Z79.84 Long term (current) use of oral hypoglycemic drugs; Z79.85 Long-term (current) use of injectable non-insulin antidiabetic drugs; Z87.891 Personal history of nicotine dependence; Z85.3 Personal history of malignant neoplasm of breast; Z92.21 Personal history of antineoplastic chemotherapy; Z92.3 Personal history of irradiation; Z90.11 Acquired absence of right breast and nipple; Z79.51 Long term (current) use of inhaled steroids
CPT/HCPCS: 66183; C1783; J0697; J1815; J1920; J2250; J3010; J7315

== ENCOUNTER → 2024-03-13 | Day surgery (SDC) | payer OTHER ==
[~2024-03-13] VITALS: Ht 142.2 cm; Wt 88.0 kg
[~2024-03-13] MED LIST changes: +ATROPINE SULFATE 1% OPHTH SOLN 2ML BTL OS SCH; +BISO10TA13 PO; +BSS IRRIG/VANCO(10MG)/TOBRA(5MG)/EPINEPH(1:1000-0.5CC)500ML BAG-ORONLY As Ordered ONE; +CEFUROXIME 1MG/0.1ML INTRACAMERAL INJ As Ordered ONE; +DORZ2SOL5 OU; +FLUT1BLS8 INH; +LIDOCAINE 1% SDV 5ML VIAL As Ordered ONE; +LIDOCAINE 3.5 % 1ML OPHTH TOPICAL GEL OU ONE; +MIDAZOLAM INJ 2MG/2ML VIAL As Ordered ONE; +OFLOXACIN 0.3 % (OCUFLOX) OPTH SOL 5ML OS ONE; +ONDANSETRON 4MG 2ML VIAL IV PRN; +PHENYLEPHRINE 2.5% OPHTH SOL 2ML OS SCH; +TRAV2.5D OU; +TROPICAMIDE 1% OPHTH SOLN 15ML OS SCH; +fentaNYL 100 MCG/2 ML INJECTION As Ordered ONE
[2024-03-13 08:30] VITALS: TEMP 98.1; O2SAT 94
[2024-03-13 09:00] VITALS: BP 224/108
== END | disposition home or self-care (01) ==
LOC: M SDC 07:25
PROVIDERS: ATTEND Ophthalmology
DX: H25.12 Age-related nuclear cataract, left eye (principal); Z53.09 Procedure and treatment not carried out because of other contraindication; I10 Essential (primary) hypertension

== ENCOUNTER 2024-04-09 06:28 | Day surgery (SDC) | payer OTHER ==
[~2024-04-09] VITALS: Ht 154.9 cm; Wt 88.7 kg
[~2024-04-09 06:28] MED LIST changes: -ATROPINE SULFATE 1% OPHTH SOLN 2ML BTL OS SCH; -BSS IRRIG/VANCO(10MG)/TOBRA(5MG)/EPINEPH(1:1000-0.5CC)500ML BAG-ORONLY As Ordered ONE; -CEFUROXIME 1MG/0.1ML INTRACAMERAL INJ As Ordered ONE; +LEVA15HF2 INH; -LEVAINH INH; -LIDOCAINE 1% SDV 5ML VIAL As Ordered ONE; -LIDOCAINE 3.5 % 1ML OPHTH TOPICAL GEL OU ONE; -MIDAZOLAM INJ 2MG/2ML VIAL As Ordered ONE; -OFLOXACIN 0.3 % (OCUFLOX) OPTH SOL 5ML OS ONE; -ONDANSETRON 4MG 2ML VIAL IV PRN; -PHENYLEPHRINE 2.5% OPHTH SOL 2ML OS SCH; -TROPICAMIDE 1% OPHTH SOLN 15ML OS SCH; -fentaNYL 100 MCG/2 ML INJECTION As Ordered ONE
[2024-04-09] MEDS: LIDOCAINE 1% SDV 5ML VIAL As Ordered ONE (06:39)
[2024-04-09] MEDS: OFLOXACIN 0.3 % (OCUFLOX) OPTH SOL 5ML OS ONE (07:00)
[2024-04-09] MEDS: TROPICAMIDE 1% OPHTH SOLN 15ML OS SCH (07:22)
[2024-04-09] MEDS: PHENYLEPHRINE 2.5% OPHTH SOL 2ML OS SCH (07:22)
[2024-04-09] MEDS: ATROPINE SULFATE 1% OPHTH SOLN 2ML BTL OS SCH (07:22)
[2024-04-09] MEDS: LIDOCAINE 3.5 % 1ML OPHTH TOPICAL GEL OU ONE (07:22)
[2024-04-09] MEDS ORDERED: fentaNYL 100 MCG/2 ML INJECTION As Ordered ONE (08:11)
[2024-04-09] MEDS ORDERED: MIDAZOLAM INJ 2MG/2ML VIAL As Ordered ONE (08:11)
[2024-04-09] MEDS: CEFUROXIME 1MG/0.1ML INTRACAMERAL INJ As Ordered ONE (09:33)
[2024-04-09] MEDS: BSS IRRIG/VANCO(10MG)/TOBRA(5MG)/EPINEPH(1:1000-0.5CC)500ML BAG-ORONLY As Ordered ONE (09:33)
[2024-04-09] MEDS: TRYPAN BLUE 0.06 % 2.25 ML OPHTH SYR (VISIONBLUE) As Ordered ONE (09:33)
[2024-04-09 09:57] VITALS: BP 174/92; TEMP 97.7; O2SAT 91
[2024-04-09] MEDS: DUOVISC (0.50ML VISCOAT/0.85ML PROVISC) OPHTH KIT As Ordered ONE (10:00)
== END 2024-04-09 10:14 | disposition home or self-care (01) ==
LOC: M SDC 06:28
PROVIDERS: ATTEND Ophthalmology
DX: H25.12 Age-related nuclear cataract, left eye (principal); I10 Essential (primary) hypertension; E78.5 Hyperlipidemia, unspecified; E11.9 Type 2 diabetes mellitus without complications; J44.9 Chronic obstructive pulmonary disease, unspecified; Z85.3 Personal history of malignant neoplasm of breast; Z92.3 Personal history of irradiation; Z92.21 Personal history of antineoplastic chemotherapy; Z79.899 Other long term (current) drug therapy; Z79.51 Long term (current) use of inhaled steroids; G47.33 Obstructive sleep apnea (adult) (pediatric); Z79.84 Long term (current) use of oral hypoglycemic drugs
CPT/HCPCS: 66984; 92015; J0697; J2250; J3010; V2788

== ENCOUNTER 2024-04-17 07:16 | Day surgery (SDC) | payer OTHER ==
[~2024-04-17] VITALS: Ht 152.4 cm; Wt 89.8 kg
[~2024-04-17 07:16] MED LIST changes: +PHENYLEPHRINE 10% OPHTH SOL 5ML OD PRN; -PHENYLEPHRINE 10% OPHTH SOL 5ML OS PRN
[2024-04-17] MEDS ORDERED: MIDAZOLAM INJ 2MG/2ML VIAL As Ordered ONE (07:33)
[2024-04-17] MEDS ORDERED: fentaNYL 100 MCG/2 ML INJECTION As Ordered ONE (07:33)
[2024-04-17] MEDS: OFLOXACIN 0.3 % (OCUFLOX) OPTH SOL 5ML OD ONE (07:40)
[2024-04-17] MEDS: LIDOCAINE 3.5 % 1ML OPHTH TOPICAL GEL OU ONE (07:41)
[2024-04-17] MEDS: ATROPINE SULFATE 1% OPHTH SOLN 2ML BTL OD SCH (07:41)
[2024-04-17] MEDS: PHENYLEPHRINE 2.5% OPHTH SOL 2ML OD SCH (07:41)
[2024-04-17] MEDS: TROPICAMIDE 1% OPHTH SOLN 15ML OD SCH (07:41)
[2024-04-17] MEDS: BSS IRRIG/VANCO(10MG)/TOBRA(5MG)/EPINEPH(1:1000-0.5CC)500ML BAG-ORONLY As Ordered ONE (09:01)
[2024-04-17] MEDS: CEFUROXIME 1MG/0.1ML INTRACAMERAL INJ As Ordered ONE (09:01)
[2024-04-17] MEDS: LIDOCAINE 1% SDV 5ML VIAL As Ordered ONE (09:01)
[2024-04-17 09:17] VITALS: BP 188/82; TEMP 98.1; O2SAT 94
== END 2024-04-17 09:56 | disposition home or self-care (01) ==
LOC: M SDC 07:16
PROVIDERS: ATTEND Ophthalmology
DX: E11.36 Type 2 diabetes mellitus with diabetic cataract (principal); H25.11 Age-related nuclear cataract, right eye; E11.40 Type 2 diabetes mellitus with diabetic neuropathy, unspecified; I10 Essential (primary) hypertension; J44.9 Chronic obstructive pulmonary disease, unspecified; Z79.899 Other long term (current) drug therapy; Z79.84 Long term (current) use of oral hypoglycemic drugs
CPT/HCPCS: 66984; 92015; J0697; J2250; J3010; V2788

== ENCOUNTER 2024-07-11 18:51 | Emergency (ER) | payer MEDICARE, BC ==
[~2024-07-11] VITALS: Ht 157.5 cm; Wt 90.7 kg
[~2024-07-11 18:51] MED LIST changes: -ADV250INH INH; +ADVA1AER9 INH; +NYST1POW3 TOP; -PHENYLEPHRINE 10% OPHTH SOL 5ML OD PRN
[2024-07-11] MEDS ORDERED: HYDR-3713 PO (21:01)
[2024-07-11] MEDS: NORCO 5/325MG TABLET (HOME DOSE PACK) PO ONE (21:45)
[2024-07-11 21:56] VITALS: BP 175/78; TEMP 97.2; O2SAT 84
== END 2024-07-11 21:58 | disposition home or self-care (01) ==
LOC: M ED 18:51
DX: S22.42XA Multiple fractures of ribs, left side, initial encounter for closed fracture (principal); W00.0XXA Fall on same level due to ice and snow, initial encounter; E11.9 Type 2 diabetes mellitus without complications; I10 Essential (primary) hypertension; J44.9 Chronic obstructive pulmonary disease, unspecified; Z88.8 Allergy status to other drugs, medicaments and biological substances; Z79.52 Long term (current) use of systemic steroids; Z79.811 Long term (current) use of aromatase inhibitors; Z79.4 Long term (current) use of insulin; Z79.899 Other long term (current) drug therapy; Y92.009 Unspecified place in unspecified non-institutional (private) residence as the place of occurrence of the external cause; Y93.89 Activity, other specified; Y99.9 Unspecified external cause status

== ENCOUNTER → 2024-08-05 | Outpatient (CLI) | payer MEDICARE ==
[~2024-08-05] MED LIST changes: +HYDR-3713 PO
== END ==
LOC: M WHC 13:10
DX: Z12.31 Encounter for screening mammogram for malignant neoplasm of breast (principal); Z13.820 Encounter for screening for osteoporosis; M85.852 Other specified disorders of bone density and structure, left thigh; M85.851 Other specified disorders of bone density and structure, right thigh

== ENCOUNTER → 2024-08-23 | Outpatient (CLI) | payer MEDICARE | LOC: M WUC 13:29 | PROVIDERS: ATTEND Internal Medicine | DX: S22.42XD Multiple fractures of ribs, left side, subsequent encounter for fracture with routine healing (principal) ==

== ENCOUNTER → 2024-08-26 | Outpatient (CLI) | payer MEDICARE | LOC: M WUC 10:00 | PROVIDERS: ATTEND Internal Medicine | DX: R10.812 Left upper quadrant abdominal tenderness (principal); R10.12 Left upper quadrant pain ==

== ENCOUNTER → 2025-01-15 | Outpatient (CLI) | payer MEDICARE ==
[~2025-01-15] MED LIST changes: -PRAV20TA2 PO; +PRAV20TA78 PO
== END ==
LOC: M RAD 10:29
PROVIDERS: ATTEND Internal Medicine Pulmonary Disease
DX: Z12.2 Encounter for screening for malignant neoplasm of respiratory organs (principal); Z87.891 Personal history of nicotine dependence

== ENCOUNTER → 2025-02-28 | Outpatient (REF) | payer MEDICARE | LOC: M LAB REF 22:37 | PROVIDERS: ATTEND Physician Assistant | DX: B34.9 Viral infection, unspecified (principal) ==

== ENCOUNTER → 2025-03-26 | Outpatient (REF) | payer MEDICARE ==
[2025-03-26 19:11] LABS: HEPATITIS C VIRUS ABY INDEX < 0.02 INDEX (<0.8)
== END ==
LOC: M LAB REF 17:53
PROVIDERS: ATTEND Internal Medicine
DX: Z01.89 Encounter for other specified special examinations (principal); Z11.59 Encounter for screening for other viral diseases; R05.9 Cough, unspecified

== ENCOUNTER → 2025-03-26 | Outpatient (CLI) | payer MEDICARE | LOC: M WUC 14:10 | PROVIDERS: ATTEND Internal Medicine | DX: R05.9 Cough, unspecified (principal) ==

== ENCOUNTER 2025-05-03 15:50 | Emergency (ER) | payer OTHER, MEDICARE ==
[~2025-05-03] VITALS: Ht 165.1 cm; Wt 91.4 kg
[2025-05-03] MEDS ORDERED: ISOVUE-370 76% 100 ML VIAL As Ordered ONE (16:46)
[2025-05-03 18:07] VITALS: BP 174/82; TEMP 98.2; O2SAT 96
== END 2025-05-03 18:15 | disposition home or self-care (01) ==
LOC: EDBD 15:50 → M ED 15:50
DX: S00.03XA Contusion of scalp, initial encounter (principal); S20.20XA Contusion of thorax, unspecified, initial encounter; V49.40XA Driver injured in collision with unspecified motor vehicles in traffic accident, initial encounter; I70.0 Atherosclerosis of aorta; K57.30 Diverticulosis of large intestine without perforation or abscess without bleeding; K76.89 Other specified diseases of liver; D73.4 Cyst of spleen; I25.84 Coronary atherosclerosis due to calcified coronary lesion; J98.11 Atelectasis; M25.78 Osteophyte, vertebrae; M50.323 Other cervical disc degeneration at C6-C7 level; M48.02 Spinal stenosis, cervical region; F17.200 Nicotine dependence, unspecified, uncomplicated; E11.9 Type 2 diabetes mellitus without complications; E78.5 Hyperlipidemia, unspecified; J44.9 Chronic obstructive pulmonary disease, unspecified; Z88.8 Allergy status to other drugs, medicaments and biological substances; Z79.52 Long term (current) use of systemic steroids; Z79.899 Other long term (current) drug therapy; Z79.82 Long term (current) use of aspirin; Z79.4 Long term (current) use of insulin; Y92.410 Unspecified street and highway as the place of occurrence of the external cause; Y93.89 Activity, other specified; Y99.9 Unspecified external cause status
CPT/HCPCS: 36415; 70450; 71260; 72125; 80047; 99284; Q9967